=== PATIENT | female | born 1985 | race Caucasian/White ===

== ENCOUNTER 2018-07-31 19:53 | Emergency (ER) | payer BC ==
[2018-07-31 21:51] VITALS: RESP 20; TEMP 97.2; O2SAT 98
[2018-07-31 22:22] VITALS: BP 125/76; PULSE 88
== END 2018-07-31 20:38 | disposition home or self-care (01) ==
LOC: ED 19:53
DX: F41.0 Panic disorder [episodic paroxysmal anxiety] (principal)
CPT/HCPCS: 99282

== ENCOUNTER 2018-09-05 08:33 | Day surgery (SDC) | payer BC ==
[2018-09-05 09:01] VITALS: TEMP 97.5
[2018-09-05] MEDS ORDERED: BUPIVACAINE HCL 0.25% MPF 30 ML SOL INFIL ONE (09:50)
[2018-09-05] MEDS: TRIAMCINOLONE ACETONIDE 40 MG/ML SUS ONE ×2 (10:00→10:05)
[2018-09-05 10:25] VITALS: BP 118/77; PULSE 72; RESP 12; O2SAT 96
== END 2018-09-05 10:38 | disposition home or self-care (01) ==
LOC: SURG 08:33
PROVIDERS: ATTEND Nurse Anesthetist, Certified Registered
DX: M12.9 Arthropathy, unspecified (principal)
CPT/HCPCS: J3300